=== PATIENT | female | born 1965 | race Caucasian/White ===

== ENCOUNTER 2021-03-20 07:54 | Emergency (ER) | payer BC ==
[~2021-03-20] VITALS: Ht 170 cm; Wt 85.0 kg
[2021-03-20] MEDS ORDERED: LACTATED RINGERS 1,000 ML IV STA (08:39)
--- NOTE | 2021-03-20 08:46 | ED Abdominal Pain ---
General Chief Complaint: Abdominal/GI Problems Stated Complaint: ABD PAIN Nursing Triage Note: AMB TO ROOM WITH C/O NAUSEA AND WEAK FOR 6 MONTHS WITH WT LOSS. IF SHE EATS HAS PAIN IN R UPPER QUAD. Source of Information: Patient Exam Limitations: No Limitations History of Present Illness Date Seen by Provider: Mar 20, 2021 Time Seen by Provider: 08:28 Initial Comments Here with report of nausea with occasional vomiting and loose stools over the last 6 months. Notes 60 pound weight loss in the last 6 months. Does report some mild right upper quadrant abdominal pain. Denies significant past medical history. She did used to drink and used to smoke but does neither now and has not for the last 6 to 7 years. Denies blood in her vomit or stool but does note that her stools are a little bit darker. She has taken Pepto-Bismol for the discomfort. Denies dysuria. She has intermittently followed with a doctor over the last several years. Timing/Duration: Getting Worse, Other (6 months) Severity/Quality: Mild, Aching Location: RUQ Radiation: No Radiation Activities at Onset: None Modifying Factors: Worsens With Eating Associated Symptoms: No Back Pain, No Chest Pain, No Fever/Chills; Fatigue; No Headache; Nausea/Vomiting; No Shortness of Air Allergies and Home Medications Allergies Coded Allergies: No Known Drug Allergies (Unverified , 03/20/21) Patient Home Medication List Home Medication List Reviewed: Yes Review of Systems Review of Systems Constitutional: No chills, No fever EENTM: No Symptoms Reported Respiratory: Denies Cough, Denies Shortness of Air Cardiovascular: Denies Chest Pain, Denies Edema Gastrointestinal: Nausea; Denies Vomiting Genitourinary: No Symptoms Reported Musculoskeletal: no symptoms reported Skin: No change in color, No lesions Psychiatric/Neurological: See HPI; Denies Headache, Denies Weakness All Other Systems Reviewed Negative Unless Noted: Yes Past Eocjbrl-Kehmot-Uugucy Hx Patient Social History Tobacco Use?: No Smoking Status: Former Smoker Substance use?: No Alcohol Use?: Yes Alcohol Frequency: Rarely Immunizations Up To Date First/Initial COVID19 Vaccinat: Sep COVID19 Vaccination Gómez: OCT COVID19 Vaccine [employer]: Eloxx Past Medical History Surgeries: Yes Section Respiratory: No Cardiac: No Neurological: No Genitourinary: No Gastrointestinal: No Family Medical History Reviewed and Corrections made No Pertinent Family Hx Physical Exam Vital Signs Vital Signs - First Documented 03/20/21 08:06 Temp 36.9 Pulse 109 Resp 18 B/P (MAP) 131/75 (93) Capillary Refill : Height/Weight/BMI Height: '" Weight: lbs. oz. kg; 29.00 BMI Method: General Appearance: WD/WN, no apparent distress HEENT: PERRL/EOMI, pharynx normal Neck: full range of motion, supple Respiratory: lungs clear, normal breath sounds Cardiovascular: no murmur, tachycardia Peripheral Pulses: 2+ Dorsalis Pedis (R), 2+ Left Dors-Pedis (L), 2+ Radial Pulses (R), 2+ Radial Pulses (L) Gastrointestinal: non tender, soft Extremities: non-tender, normal inspection Back: normal inspection, no CVA tenderness, no vertebral tenderness Neurologic/Psychiatric: alert, oriented x 3 Skin: normal color, warm/dry Progress/Results/Core Measures Results/Orders Lab Results Laboratory Tests Test 03/20/21 08:41 03/20/21 09:47 Range/Units White Blood Count 7.2 4.3-11.0 10^3/uL Red Blood Count 4.32 3.80-5.11 10^6/uL Hemoglobin 14.8 11.5-16.0 g/dL Hematocrit 42 35-52 % Mean Corpuscular Volume 98 80-99 fL Mean Corpuscular Hemoglobin 34 25-34 pg Mean Corpuscular Hemoglobin Concent 35 32-36 g/dL Red Cell Distribution Width 13.4 10.0-14.5 % Platelet Count 169 130-400 10^3/uL Mean Platelet Volume 9.7 9.0-12.2 fL Immature Granulocyte % (Auto) 1 % Neutrophils (%) (Auto) 87 H 42-75 % Lymphocytes (%) (Auto) 6 L 12-44 % Monocytes (%) (Auto) 6 0-12 % Eosinophils (%) (Auto) 0 0-10 % Basophils (%) (Auto) 0 0-10 % Neutrophils # (Auto) 6.3 1.8-7.8 10^3/uL Lymphocytes # (Auto) 0.4 L 1.0-4.0 10^3/uL Monocytes # (Auto) 0.4 0.0-1.0 10^3/uL Eosinophils # (Auto) 0.0 0.0-0.3 10^3/uL Basophils # (Auto) 0.0 0.0-0.1 10^3/uL Immature Granulocyte # (Auto) 0.1 0.0-0.1 10^3/uL Neutrophils % (Manual) 66 % Lymphocytes % (Manual) 7 % Monocytes % (Manual) 8 % Eosinophils % (Manual) 0 % Basophils % (Manual) 0 % Band Neutrophils 19 % Blood Morphology Comment NORMAL Sodium Level 128 L 135-145 MMOL/L Potassium Level 3.2 L 3.6-5.0 MMOL/L Chloride Level 87 L 98-107 MMOL/L Carbon Dioxide Level 25 21-32 MMOL/L Anion Gap 16 H 5-14 MMOL/L Blood Urea Nitrogen 7 7-18 MG/DL Creatinine 0.68 0.60-1.30 MG/DL Estimat Glomerular Filtration Rate > 60 BUN/Creatinine Ratio 10 Glucose Level 119 H 70-105 MG/DL Calcium Level 8.2 L 8.5-10.1 MG/DL Corrected Calcium 8.8 8.5-10.1 MG/DL Magnesium Level 1.6 1.6-2.4 MG/DL Total Bilirubin 0.5 0.1-1.0 MG/DL Aspartate Amino Transf (AST/SGOT) 39 H 5-34 U/L Alanine Aminotransferase (ALT/SGPT) 23 0-55 U/L Alkaline Phosphatase 59 40-136 U/L C-Reactive Protein High Sensitivity 28.11 H 0.00-0.50 MG/DL Total Protein 6.8 6.4-8.2 GM/DL Albumin 3.2 3.2-4.5 GM/DL Urine Color ORANGE Urine Clarity CLEAR Urine pH 6.5 5-9 Urine Specific [place] 1.010 L 1.016-1.022 Urine Protein 2+ H NEGATIVE Urine Glucose (UA) NEGATIVE NEGATIVE Urine Ketones TRACE H NEGATIVE Urine Nitrite NEGATIVE NEGATIVE Urine Bilirubin 1+ H NEGATIVE Urine Urobilinogen 1.0 < = 1.0 MG/DL Urine Leukocyte Esterase TRACE H NEGATIVE Urine RBC (Auto) 2+ H NEGATIVE Urine RBC 5-10 H /HPF Urine WBC 2-5 /HPF Urine Squamous Epithelial Cells 10-25 H /HPF Urine Crystals NONE /LPF Urine Bacteria FEW H /HPF Urine Casts NONE /LPF Urine Mucus SMALL H /LPF Urine Culture Indicated NO My Orders Orders - GRANT,NAVIN D MD Cbc With Automated Diff (03/20/21 08:39) Comprehensive Metabolic Panel (03/20/21 08:39) Hs C Reactive Protein (03/20/21 08:39) Magnesium (03/20/21 08:39) Ua Culture If Indicated (03/20/21 08:39) Lactated Ringers (Lr 1000 Ml Iv Solution (03/20/21 08:39) Ed Iv/Invasive Line Start (03/20/21 08:39) Ct Abdomen/Pelvis W (03/20/21 08:39) Manual Differential (03/20/21 08:41) Iohexol Injection (Omnipaque 350 Mg/Ml 1 (03/20/21 09:30) Received Contrast (Hold Metformin- Contr (03/20/21 09:30) Sodium Chloride Flush (Catheter Flush Sy (03/20/21 09:30) Ns (Ivpb) (Sodium Chloride 0.9% Ivpb Bag (03/20/21 09:30) Urine Culture (03/20/21 11:32) Ceftriaxone 1 Gram Ivp (03/20/21 11:32) Medications Given in ED Current Medications Medications Dose Ordered Sig/Jerardo Route Start Time Stop Time Status Last Admin Dose Admin Iohexol 100 ml ONCE ONCE IV 03/20/21 09:30 03/20/21 09:37 DC 03/20/21 09:59 100 ML Sodium Chloride 10 ml NEEDED PRN IV 03/20/21 09:30 03/20/21 09:59 10 ML Sodium Chloride 100 ml ONCE ONCE IV 03/20/21 09:30 03/20/21 09:37 DC 03/20/21 09:59 80 ML Vital Signs/I&O 03/20/21 08:06 Temp 36.9 Pulse 109 Resp 18 B/P (MAP) 131/75 (93) Blood Pressure Mean: 93 Progress Progress Note : Progress Note Seen and evaluated. IV, labs, UA, LR 1 L bolus ordered. Anticipate CT abdomen pelvis with contrast. Monitor patient. 1130: Rocephin 1 g IV for possible pyelonephritis. This shows up on the right on CT scan. Patient is able to tolerate p.o. and feels like she could do this at home. We will culture the urine. Rocephin 1 g IV now and we will continue outpatient treatment with cefdinir. Discharged home with return precautions. Patient verbalized understanding instructions and agreement with plan. Diagnostic Imaging Diagonstic Imaging: CT Plain Films/CT/US/NM/MRI: abdomen, pelvis Comments [facility] [place], [place] NAME: LUCILLE REN [facility] REC#: [id number] PT STATUS: REG ER : 1965 PHYSICIAN: NAVIN BURNS MD ADMIT DATE: 03/20/21/ER Draft Date of Exam:03/20/21 CT ABDOMEN/PELVIS W PROCEDURE: CT abdomen and pelvis with contrast. TECHNIQUE: Multiple contiguous axial images were obtained through the abdomen and pelvis after administration of intravenous contrast. Auto Exposure Controls were utilized during the CT exam to meet ALARA standards for radiation dose reduction. All CT scans use one or more of the following dose optimizing techniques: automated exposure control, MA and/or KvP adjustment based on patient size and exam type or iterative reconstruction. INDICATION: Unintentional weight loss and decreased appetite. COMPARISON: No prior studies are available for comparison. The lung bases are clear. The liver shows diffuse low density consistent with hepatic steatosis. No discrete liver mass is detected. The gallbladder is unremarkable. There is no biliary ductal dilatation. The pancreas and spleen are unremarkable. No adrenal mass is identified. There appears to be a small cortical cyst in the upper pole of the right kidney. There appears to be some minimal inflammatory stranding and trace fluid adjacent to the upper pole of the right kidney, nonspecific. Aorta is calcified but nonaneurysmal. Bowel loops are normal caliber. There is diverticulosis of the sigmoid but no evidence of acute diverticulitis. No ascites is identified. Appendix is unremarkable. No definite central, retroperitoneal or mesenteric lymphadenopathy is seen. No pelvic lymphadenopathy is detected. Bony structures are nonacute. IMPRESSION: 1. Hepatic steatosis. 2. Small right renal cyst with minimal fluid and inflammation adjacent to the right kidney, nonspecific. The remainder of the study is unremarkable apart from uncomplicated diverticulosis. No abdominal or pelvic lymphadenopathy or discrete mass is detected. Dictated on workstation # [id number] Dict: 03/20/21 1016 Trans: 03/20/21 1029 [facility] [id number] Interpreted by: VIKY HINDS MD Electronically signed by: Departure Impression Primary Impression: Pyelonephritis of right kidney Additional Impression: Dehydration Disposition: 01 HOME, SELF-CARE Condition: Stable Departure-Patient Inst. Decision time for Depature: 11:35 Referrals: NO,LOCAL PHYSICIAN (PCP/Family) Primary Care Physician Patient Instructions: Kidney Infection (DC), Dehydration, Adult (DC) Add. Discharge Instructions: All discharge instructions reviewed with patient and/or family. Voiced understanding. It is very important that you maintain a normal diet and drink plenty of fluids. Take medications as directed. It is also very important that you follow-up with your doctor of your choice within the next week for recheck and further evaluation. You need to establish care and then they can follow the kidney cyst on the right and also ensure that you are getting better after antibiotics. Please return if you are having any worsening of symptoms including fever, vomiting, weakness, breathing problems or other concerns as needed. Scripts Cefdinir (Cefdinir) 300 Mg Capsule 300 MG PO BID, #14 CAP 0 Refills Prov: NAVIN BURNS MD 03/20/21 NAVIN BURNS MD Mar 20, 2021 08:46
[2021-03-20 08:56] LABS: BASOPHILS % (AUTO) 0 % (0-10); EOSINOPHILS % (AUTO) 0 % (0-10); HEMATOCRIT 42 % (35-52); HEMOGLOBIN 14.8 g/dL (11.5-16.0); LYMPHOCYTES # (AUTO) 0.4 10^3/uL (1.0-4.0); LYMPHOCYTES % (AUTO) 6 % (12-44); MEAN CORPUSCULAR HEMOGLOBIN 34 pg (25-34); MEAN CORPUSCULAR HGB CONC 35 g/dL (32-36); MEAN CORPUSCULAR VOLUME 98 fL (80-99); MEAN PLATELET VOLUME 9.7 fL (9.0-12.2); MONOCYTES # (AUTO) 0.4 10^3/uL (0.0-1.0); MONOCYTES % (AUTO) 6 % (0-12); NEUTROPHILS # (AUTO) 6.3 10^3/uL (1.8-7.8); NEUTROPHILS % (AUTO) 87 % (42-75); PLATELET COUNT 169 10^3/uL (130-400); WHITE BLOOD COUNT 7.2 10^3/uL (4.3-11.0)
[2021-03-20 09:15] LABS: ALBUMIN 3.2 GM/DL (3.2-4.5)
[2021-03-20 09:16] LABS: CHLORIDE 87 MMOL/L (98-107); POTASSIUM 3.2 MMOL/L (3.6-5.0); SODIUM 128 MMOL/L (135-145)
[2021-03-20 09:17] LABS: CALCIUM 8.2 MG/DL (8.5-10.1)
[2021-03-20 09:18] LABS: GLUCOSE 119 MG/DL (70-105); TOTAL PROTEIN 6.8 GM/DL (6.4-8.2)
[2021-03-20 09:19] LABS: CARBON DIOXIDE 25 MMOL/L (21-32)
[2021-03-20 09:20] LABS: BILIRUBIN,TOTAL 0.5 MG/DL (0.1-1.0)
[2021-03-20 09:21] LABS: ALKALINE PHOSPHATASE 59 U/L (40-136)
[2021-03-20 09:22] LABS: CREATININE SERUM 0.68 MG/DL (0.60-1.30); GFR ESTIMATED > 60
[2021-03-20 09:23] LABS: BAND NEUTROPHILS 19 %; BASOPHILS % (MANUAL) 0 %; BUN/CREATININE RATIO 10; EOSINOPHILS % (MANUAL) 0 %; LYMPHOCYTES % (MANUAL) 7 %; MONOCYTES % (MANUAL) 8 %; NEUTROPHILS % (MANUAL) 66 %; RBC MORPH NORMAL
[2021-03-20 09:25] LABS: ALANINE AMINOTRANSFERASE 23 U/L (0-55); MAGNESIUM 1.6 MG/DL (1.6-2.4)
[2021-03-20] MEDS ORDERED: IOHEXOL 350 MG/ML 100 ML (OMNIPAQUE 350) VIAL IV ONE (09:30)
[2021-03-20] MEDS ORDERED: NS 100 ML (IVPB) BAG IV ONE (09:30)
[2021-03-20] MEDS ORDERED: CATHETER FLUSH 10 ML SYR IV PRN (09:30)
[2021-03-20] MEDS ORDERED: HOLD METFORMIN - RECEIVED CONTRAST 20 ML VIAL IV SCH (09:30)
[2021-03-20 09:54] LABS: CLARITY,URINE CLEAR; COLOR,URINE ORANGE; GLUCOSE, URINE (UA) NEGATIVE (NEGATIVE); KETONES,URINE TRACE (NEGATIVE); LEUKOCYTE ESTERASE ,URINE TRACE (NEGATIVE); NITRITE,URINE NEGATIVE (NEGATIVE); PH,URINE 6.5 (5-9); PROTEIN,URINE 2+ (NEGATIVE)
[2021-03-20 10:15] LABS: BACTERIA,URINE FEW /HPF; BILIRUBIN,URINE 1+ (NEGATIVE)
--- NOTE | 2021-03-20 10:29 | Diagnostic Imaging Report ---
PROCEDURE: CT abdomen and pelvis with contrast. TECHNIQUE: Multiple contiguous axial images were obtained through the abdomen and pelvis after administration of intravenous contrast. Auto Exposure Controls were utilized during the CT exam to meet ALARA standards for radiation dose reduction. All CT scans use one or more of the following dose optimizing techniques: automated exposure control, MA and/or KvP adjustment based on patient size and exam type or iterative reconstruction. INDICATION: Unintentional weight loss and decreased appetite. COMPARISON: No prior studies are available for comparison. The lung bases are clear. The liver shows diffuse low density consistent with hepatic steatosis. No discrete liver mass is detected. The gallbladder is unremarkable. There is no biliary ductal dilatation. The pancreas and spleen are unremarkable. No adrenal mass is identified. There appears to be a small cortical cyst in the upper pole of the right kidney. There appears to be some minimal inflammatory stranding and trace fluid adjacent to the upper pole of the right kidney, nonspecific. Aorta is calcified but nonaneurysmal. Bowel loops are normal caliber. There is diverticulosis of the sigmoid but no evidence of acute diverticulitis. No ascites is identified. Appendix is unremarkable. No definite central, retroperitoneal or mesenteric lymphadenopathy is seen. No pelvic lymphadenopathy is detected. Bony structures are nonacute. IMPRESSION: 1. Hepatic steatosis. 2. Small right renal cyst with minimal fluid and inflammation adjacent to the right kidney, nonspecific. The remainder of the study is unremarkable apart from uncomplicated diverticulosis. No abdominal or pelvic lymphadenopathy or discrete mass is detected. Dictated by: Dictated on workstation # [id number]
[2021-03-20] MEDS ORDERED: cefTRIAXone 1,000 MG in WATER (STERILE) FOR INJECTION 10 ML IV STA (11:32)
[2021-03-20] MEDS ORDERED: CEFD300C3 PO (11:38)
[2021-03-20 12:25] VITALS: BP 114/63
== END 2021-03-20 12:25 | disposition home or self-care (01) ==
LOC: ER 07:57
DX: N12 Tubulo-interstitial nephritis, not specified as acute or chronic (principal); E86.0 Dehydration; Z87.891 Personal history of nicotine dependence
CPT/HCPCS: 36415; 74177; 80053; 81000; 83735; 85007; 85027; 86141; 87088

== ENCOUNTER → 2021-08-14 | Outpatient (CLI) | payer BC ==
[~2021-08-14] MED LIST: CEFD300C3 PO
--- NOTE | 2021-08-14 11:01 | Diagnostic Imaging Report ---
PROCEDURE: CT urinary tract, rule out kidney stone. TECHNIQUE: Multiple contiguous axial images were obtained through the abdomen and pelvis without the use of intravenous contrast. Auto Exposure Controls were utilized during the CT exam to meet ALARA standards for radiation dose reduction. INDICATION: Bilateral flank pain and microhematuria. CORRELATION is made with prior CT from 03/20/2021. FINDINGS: The lung bases are clear. The liver and gallbladder are unremarkable. There is no biliary ductal dilatation. The pancreas and spleen are unremarkable. No adrenal mass is detected. There is a small cortical slightly hyperdense lesion along the anterior cortex of the right kidney lower pole which appears stable since the study from March. Lesion remains indeterminate. Simple appearing cyst along the posterior cortex of the right kidney lower pole is stable. No calculi are identified. There is no hydronephrosis. Left kidney is unremarkable. Aorta is calcified but nonaneurysmal. The small and large bowel loops are normal caliber. There is diverticulosis of the descending colon and sigmoid but no evidence of acute diverticulitis. There is a right para-midline fat-containing ventral hernia in the lower abdomen/pelvis. No herniated bowel loops are seen. There is no free fluid or fluid collection. Bladder is decompressed. The uterus is unremarkable. IMPRESSION: 1. Right renal cyst. 2. Stable indeterminate slightly hyperdense right renal cortical lesion compared with study from March. Continued close interval follow-up to confirm stability is recommended. There is no calculi or hydronephrosis. 3. Uncomplicated diverticulosis. 4. Midline fat-containing ventral hernia. No herniated bowel loops or bowel obstruction is seen. Dictated by: Dictated on workstation # [id number]
== END ==
LOC: RAD 10:15
PROVIDERS: ATTEND Physician Assistant
DX: N28.1 Cyst of kidney, acquired (principal); K57.30 Diverticulosis of large intestine without perforation or abscess without bleeding; K43.9 Ventral hernia without obstruction or gangrene
CPT/HCPCS: 74176

== ENCOUNTER 2022-08-02 11:19 | Emergency (ER) | payer BC ==
[~2022-08-02] VITALS: Ht 162 cm; Wt 77.1 kg
--- NOTE | 2022-08-02 12:22 | ED General ---
General Chief Complaint: General Problems/Pain Stated Complaint: WEAKNESS | SORE THROAT Nursing Triage Note: pt states weakness for 2 weeks, had covid 2 weeks ago, her work called her and asked him to have her checked out. low back pain and sore throat Source of Information: Patient Exam Limitations: No Limitations (AMALIA REN) History of Present Illness Date Seen by Provider: Aug 02, 2022 Time Seen by Provider: 12:12 Initial Comments Patient is a 56 year old F who presents to the ER with CC of weakness and lethargy onset 2 weeks ago. Patient reports that 2 weeks ago she tested positive for COVID and has been resting at home. Today she states is her first day back at work and her boss wanted her to come in to get evaluated because "she is just not acting herself". She states that she has a sore throat and swelling in her neck. She denies any changes in her appetite or bowel movements. She also denies any change in urine. Patient states she has neck and back pain that is chronic. She also c/o runny nose and mild dry cough. Denies fever, chills, body aches, numbness, or weakness. She is a former smoker that quit more than 10 years ago. Denies EtOH or illicit drug use. Timing/Duration: Other (2 weeks) Associated Systoms: No Cough, No Fever/Chills, No Loss of Appetite, No Nausea/Vomiting; Weakness (AMALIA REN) Allergies and Home Medications Allergies Coded Allergies: No Known Drug Allergies (Unverified , 03/20/21) Patient Home Medication List Home Medication List Reviewed: Yes (AMALIA REN) Home Medication List Reviewed: Yes (RIOS DE LA VEGA MD) Cefdinir (Cefdinir) 300 Mg Capsule, 300 MG PO BID Prescribed by: NAVIN BURNS on 03/20/21 7575 Review of Systems Review of Systems Constitutional: No chills, No fever; weakness EENTM: throat pain, throat swelling (bilateral anterior neck) Respiratory: cough (mild, dry) Gastrointestinal: No abdominal pain, No loss of appetite Genitourinary: No dysuria, No hematuria Musculoskeletal: back pain, neck pain (AMALIA REN) Past Dpgqoim-Oqhsbl-Awalbc Hx Patient Social History Tobacco Use?: No Substance use?: No Alcohol Use?: Yes Alcohol type: Wine ([facility]) Immunizations Up To Date First/Initial COVID19 Vaccinat: SEP Second COVID19 Vaccination Gómez: OCT Third COVID19 Vaccination Date: SEP ([facility] Past Medical History Surgery/Hospitalization HX: covid 3 times, hx of uti's Surgeries: Yes Section Respiratory: No Cardiac: No Neurological: No Genitourinary: No Gastrointestinal: No ([facility]) Family Medical History No Pertinent Family Hx ([facility]) Physical Exam Vital Signs Vital Signs - First Documented 08/02/22 11:50 Temp 36.3 Pulse 107 Resp 20 B/P (MAP) 140/83 (102) Pulse Ox 98 O2 Delivery Room Air (RIOS DE LA VEGA MD) Vital Signs Capillary Refill : Less Than 3 Seconds ([facility]) Height, Weight, BMI Height: '" Weight: lbs. oz. kg; 29.00 BMI Method: General Appearance: No Apparent Distress, WD/WN Neck: Full Range of Motion, Normal Inspection, Non Tender Respiratory: Chest Non Tender, Lungs Clear, Normal Breath Sounds, No Accessory Muscle Use, No Respiratory Distress Cardiovascular: Regular Rate, Rhythm, No Murmur Gastrointestinal: Non Tender, Soft Extremity: Normal Capillary Refill, Non Tender, No Calf Tenderness, No Pedal Edema Neurologic/Psychiatric: Alert, Oriented x3 Skin: Normal Color, Warm/Dry ([facility]) Progress/Results/Core Measures Suspected Sepsis SIRS Temperature: Pulse: 107 Respiratory Rate: 20 Blood Pressure 140 /83 Mean: 102 ([facility]) Results/Orders Lab Results Laboratory Tests Test 08/02/22 11:57 08/02/22 12:48 Range/Units Serum Alcohol 365 *H <10 MG/DL Urine Color YELLOW Urine Clarity CLEAR Urine pH 6.0 5-9 Urine Specific [place] <=1.005 1.016-1.022 Urine Protein NEGATIVE NEGATIVE Urine Glucose (UA) NEGATIVE NEGATIVE Urine Ketones NEGATIVE NEGATIVE Urine Nitrite NEGATIVE NEGATIVE Urine Bilirubin NEGATIVE NEGATIVE Urine Urobilinogen 0.2 < = 1.0 MG/DL Urine Leukocyte Esterase NEGATIVE NEGATIVE Urine RBC (Auto) 1+ H NEGATIVE Urine RBC 2-5 H /HPF Urine WBC NONE /HPF Urine Squamous Epithelial Cells 2-5 /HPF Urine Crystals NONE /LPF Urine Bacteria FEW H /HPF Urine Casts NONE /LPF Urine Mucus NEGATIVE /LPF Urine Culture Indicated NO Urine Opiates Screen NEGATIVE NEGATIVE Urine Oxycodone Screen NEGATIVE NEGATIVE Urine Methadone Screen NEGATIVE NEGATIVE Urine Propoxyphene Screen NEGATIVE NEGATIVE Urine Barbiturates Screen NEGATIVE NEGATIVE Ur Tricyclic Antidepressants Screen NEGATIVE NEGATIVE Urine Phencyclidine Screen NEGATIVE NEGATIVE Urine Amphetamines Screen NEGATIVE NEGATIVE Urine Methamphetamines Screen NEGATIVE NEGATIVE Urine Benzodiazepines Screen POSITIVE H NEGATIVE Urine Cocaine Screen NEGATIVE NEGATIVE Urine Cannabinoids Screen POSITIVE H NEGATIVE (RIOS DE LA VEGA MD) My Orders Orders - RIOS DE LA VEGA MD Ua Culture If Indicated (08/02/22 12:26) Drug Screen Stat (Urine) (08/02/22 12:26) Alcohol (08/02/22 12:26) Ns Iv 1000 Ml (Sodium Chloride 0.9%) (08/02/22 12:30) (RIOS DE LA VEGA MD) Vital Signs/I&O 08/02/22 08/02/22 11:50 14:10 Temp 36.3 36.3 Pulse 107 97 Resp 20 18 B/P (MAP) 140/83 (102) 137/81 Pulse Ox 98 98 O2 Delivery Room Air Room Air (RIOS DE LA VEGA MD) Vital Signs/I&O Capillary Refill : Less Than 3 Seconds (AMALIA REN) Blood Pressure Mean: 102 Progress Note : Time: 13:52 Progress Note Patient seen and evaluated by me, 56-year-old female presents to the emergency room with generalized fatigue, malaise and "not feeling good". I have seen and evaluated the patient personally, I have reviewed and agree with the medical student's documentation and plan of care, further edits as follows. Patient's vital signs are stable. She has no specific complaints. During my course of history and examination I did have an odor of alcohol from the patient. I asked her about alcohol use, she denied. She also denied drugs and smoking. Physical exam was generally unremarkable. No focal deficits. We did do influenza testing as well as urine drug screen and alcohol level. Her alcohol is notably greater than 300. Negative for flu. Positive for benzos and marijuana on her drug screen. I had a discussion with the patient about her alcohol use. She states "I overdid it over the weekend" she states this was be cause her daughter came to visit. I asked her if she had ever done rehab or AA in the past and she said intermittently. She does not seem amenable to any intervention at this time. I asked her if she drove to work this morning she said she had. I told her to take care of herself. We will send her home with some resources for and [facility]. Patient stable for discharge. (RIOS DE LA VEGA MD) Departure Impression Primary Impression: Alcohol intoxication Qualified Codes: F10.920 - Alcohol use, unspecified with intoxication, uncomplicated Disposition: 01 HOME, SELF-CARE Condition: Stable Departure-Patient Inst. Decision time for Depature: 13:55 (RIOS DE LA VEGA MD) Referrals: JUDE GARLAND MD (PCP/Family) Primary Care Physician Patient Instructions: Alcohol Intoxication ED Add. Discharge Instructions: You need to drink some fluids today to rehydrate. Avoid Tylenol products for today. If you have any aches or pains you can take [id number] ibuprofen 3 tablets with a little food every 6 hours. Follow-up with Dr. Garland's office in a week. On this paper you will find address and phone number for [facility]. I would strongly encourage you to reach out to them to see if there are any resources that you can use to help stop drinking. Return to the emergency department for any new, concerning or emergent complaints. [facility] [address] [place] [address] [facility] [phone] [address] [place] [address] Get Immediate Help [facility]gov or Call [phone]) Work/School Note: Work Release Form Date Seen in the Emergency Department: Aug 02, 2022 Verification and Attestation of Medical Student E/M Service A medical student performed and documented this service in my presence. I reviewed and verified all information documented by the medical student and made modifications to such information, when appropriate. I personally performed the physical exam and medical decision making. Rios De La Vega, Aug 04, 2022,17:25 (RIOS DE LA VEGA MD) Copy Copies To 1: JUDE GARLAND MD [facility] Aug 02, 2022 12:22 RIOS DE LA VEGA MD Aug 02, 2022 13:57
[2022-08-02] MEDS ORDERED: NS IV 1000 ML 1,000 ML IV SCH (12:30)
[2022-08-02 12:56] LABS: BILIRUBIN,URINE NEGATIVE (NEGATIVE); CLARITY,URINE CLEAR; COLOR,URINE YELLOW; GLUCOSE, URINE (UA) NEGATIVE (NEGATIVE); KETONES,URINE NEGATIVE (NEGATIVE); LEUKOCYTE ESTERASE ,URINE NEGATIVE (NEGATIVE); NITRITE,URINE NEGATIVE (NEGATIVE); PROTEIN,URINE NEGATIVE (NEGATIVE)
[2022-08-02 13:10] LABS: BACTERIA,URINE FEW /HPF
[2022-08-02 13:11] LABS: AMPHETAMINE SCREEN, URINE NEGATIVE (NEGATIVE); BENZODIAZEPINES SCREEN URINE POSITIVE (NEGATIVE); COCAINE SCREEN URINE NEGATIVE (NEGATIVE)
[2022-08-02 13:12] LABS: BARBITURATE SCREEN URINE NEGATIVE (NEGATIVE); CANNABINOID SCREEN, URINE POSITIVE (NEGATIVE); METHADONE STAT NEGATIVE (NEGATIVE); OPIATE SCREEN URINE NEGATIVE (NEGATIVE); OXYCODONE STAT NEGATIVE (NEGATIVE); PROPOXYPHENE STAT NEGATIVE (NEGATIVE); TRICYCLIC ANTIDEPRESSANTS SCRE NEGATIVE (NEGATIVE)
[2022-08-02 14:10] VITALS: BP 137/81
== END 2022-08-02 14:13 | disposition home or self-care (01) ==
LOC: EDUNIT# 11:19 → ER 11:22
DX: R53.81 Other malaise (principal); R53.83 Other fatigue; F10.129 Alcohol abuse with intoxication, unspecified; U07.1 COVID-19; Y90.8 Blood alcohol level of 240 mg/100 ml or more; Z87.891 Personal history of nicotine dependence
CPT/HCPCS: 80306; 81000; 99283; G0480; 36415; 80320

== ENCOUNTER 2023-08-03 22:01 | Inpatient (IN) | payer BC ==
[~2023-08-03] VITALS: Ht 162.6 cm; Wt 72.5 kg
[2023-08-03] MEDS ORDERED: LACTATED RINGERS 1,000 ML 1,000 ML IV ONE (22:30)
[2023-08-03 22:32] LABS: BASOPHILS # (AUTO) 0.1 10^3/uL (0.0-0.1); EOSINOPHILS % (AUTO) 0 % (0-10); HEMOGLOBIN 14.1 g/dL (11.5-16.0); MEAN CORPUSCULAR HEMOGLOBIN 37 pg (25-34)
[2023-08-03 22:34] LABS: BASOPHILS % (AUTO) 1 % (0-10); HEMATOCRIT 41 % (35-52); LYMPHOCYTES # (AUTO) 1.2 10^3/uL (1.0-4.0); LYMPHOCYTES % (AUTO) 15 % (12-44); MEAN CORPUSCULAR HGB CONC 35 g/dL (32-36); MEAN CORPUSCULAR VOLUME 106 fL (80-99); MEAN PLATELET VOLUME 10.9 fL (9.0-12.2); MONOCYTES # (AUTO) 0.4 10^3/uL (0.0-1.0); MONOCYTES % (AUTO) 5 % (0-12); NEUTROPHILS % (AUTO) 78 % (42-75); PLATELET COUNT 98 10^3/uL (130-400); WHITE BLOOD COUNT 7.7 10^3/uL (4.3-11.0)
--- NOTE | 2023-08-03 22:40 | ED General ---
General Chief Complaint: Neurological Problems Stated Complaint: SEIZURES, LOSS OF CONSCIOUSNESS Nursing Triage Note: PT AMB TO RM 6 WITH CC OF 2 SEIZURES THIS PM. 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 PT STATES KNOWN SEIZURE DISORDER. PT REPORTS HITTING HEAD. PT A&OX4 Source of Information: Patient History of Present Illness Date Seen by Provider: Aug 03, 2023 Time Seen by Provider: 22:10 Initial Comments PT ARRIVES VIA POV FROM HOME WITH --WALKS IN ON HER OWN PT STATES SHE HAS HAD 2 SEIZURES TODAY SHE HAD ONE EARLIER TODAY, AND HIT HER HEAD--SHE WAS AT [facility] AT THE TIME, AND EMS WAS CALLED, THEN PT REFUSED TRANSPORT--THE DETAILS OF THIS ARE NOT KNOWN. WAS AT WORK AT THE TIME SHE HAD ANOTHER SEIZURE ABOUT 1/2 HOUR PRIOR TO ARRIVAL. PT STATES SHE WAS AT HOME, AND STATES SHE HIT HER HEAD AGAIN--THINKS IT WAS ON A CABINET. DETAILS OF THIS ARE NOT KNOWN EITHER. LEFT SHORTLY AFTER ARRIVAL, AND NO DETAILS WERE ABLE TO BE OBTAINED FROM HIM. PT DENIES ANY INCONTINENCE WITH THESE EPISODES PT HAS HAD 2 SEIZURES IN THE PAST--HAD ONE ABOUT A YEAR AGO, AND HAD ONE ABOUT 6 MONTHS PRIOR TO THAT. DID NOT SEEK CARE FOR THOSE EPISODES. SHE HAS NEVER SEEN A NEUROLOGIST OR HAD ANY TESTS OR BEEN ON ANY SEIZURE MEDICATION PT HAS LONG HISTORY OF ALCOHOL ABUSE, DRANK ABOUT A FIFTH OF VODKA A DAY, STATES RECENTLY SHE HAS "TRIED TO CUT BACK" AND CLAIMS SHE IS NOT DRINKING HARD LIQUOR DAILY, MOSTLY "SELZTERS" CLAIMS SHE HAS NOT HAD ANY ALCOHOL SINCE THE WEEKEND ( IT IS NOW TUESDAY NIGHT BEFORE ) CLAIMS SHE HAD "ONLY 6 OR 8" DRINKS ON TUESDAY OR TUESDAY. SHE HAS HER CHILDREN/FAMILY MEMBERS ARE VISITING THIS WEEK. PRIOR VISIT HERE WAS EXACTLY 1 YEAR AGO, AND SHE WAS INTOXICATED AT THAT TIME WITH ETOH LEVEL 365 AT THAT TIME. UDS + FOR BENZO'S AND THC AT THAT TIME. PT DENIES DRUG USE PT STATES SHE DOES NOT TAKE ANY MEDICATIONS SHE IS CURRENTLY ON MACROBID FOR UTI, PRESCRIBED TODAY AT [facility]/DR. MCCLURE SHE HAD SORE THROAT LAST WEEK, NOT TODAY HAD SOUP FOR LUNCH TODAY AT 1300, HAS BEEN DRINKING WATER TODAY. 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 / [facility] Allergies and Home Medications Allergies Coded Allergies: No Known Drug Allergies (Unverified , 03/20/21) Patient Home Medication List Home Medication List Reviewed: Yes Cefdinir (Cefdinir) 300 Mg Capsule, 300 MG PO BID Prescribed by: NAVIN BURNS on 03/20/21 1138 Review of Systems Review of Systems Constitutional: no symptoms reported EENTM: see HPI Respiratory: no symptoms reported Cardiovascular: see HPI Gastrointestinal: no symptoms reported Genitourinary: no symptoms reported Musculoskeletal: no symptoms reported Skin: no symptoms reported Psychiatric/Neurological: See HPI Hematologic/Lymphatic: No Symptoms Reported Immunological/Allergic: no symptoms reported Past Joexjhb-Ggcjyh-Zgbxhm Hx Patient Social History Tobacco Use?: Yes Tobacco type used: Cigarettes Smoking Status: Current Everyday Smoker Substance use?: Yes Substance type: Misuse of prescript meds, Marijuana Additional substance use comme: UDS + FOR BENZO'S AND THC Substance frequency: Daily Alcohol Use?: Yes Alcohol type: Hard Liquor, Wine, Other Alcohol Frequency: Daily Immunizations Up To Date First/Initial COVID19 Vaccinat: SEP Second COVID19 Vaccination Gómez: Oct COVID19 Vaccination Date: SEP Past Medical History Surgery/Hospitalization HX: covid 3 times, hx of uti's Surgeries: Yes Section Respiratory: No Cardiac: No Neurological: Yes (REPORTED SEIZURES, NOT VERIFIED BY / NO NEUROLOGIST OR TESTS OR MEDS) 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 oz. kg; 27.00 BMI Method: General Appearance: No Apparent Distress, WD/WN HEENT: PERRL/EOMI, Normal ENT Inspection, Pharynx Normal, Scleral Icterus (L), Scleral Icterus (R), Other (DENTURES; PT HAS LARGE HEMATOMA WITH DARK PURPLE BRUISING TO RIGHT PARIETAL / POSTERIOR PARIETAL AREA, AND ALSO LEFT OCCIPTAL/POSTERIOR PARIETAL AREA. 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 SPEECH IS CLEAR AND GAIT IS STEADY. ) Skin: Warm/Dry, Ecchymosis, Jaundice; No Petechia, No Rash Focused Exam Lactate Level 08/03/23 22:40: Lactic Acid Level 1.74 Lactic Acid Level Laboratory Tests Test 08/03/23 22:40 Lactic Acid Level 1.74 MMOL/L (0.50-2.00) Progress/Results/Core Measures Suspected Sepsis SIRS Temperature: Pulse: 119 Respiratory Rate: 16 Laboratory Tests 08/03/23 22:23: White Blood Count 7.7 Blood Pressure 134 /90 Mean: 105 08/03/23 22:40: Lactic Acid Level 1.74 Laboratory Tests 08/03/23 22:23: Creatinine 0.72, INR Comment 1.0, Platelet Count 98L, Total Bilirubin 3.1H Results/Orders Lab Results Laboratory Tests Test 08/03/23 22:23 08/03/23 22:24 08/03/23 22:40 08/03/23 22:48 Range/Units White Blood Count 7.7 4.3-11.0 10^3/uL Red Blood Count 3.85 3.80-5.11 10^6/uL Hemoglobin 14.1 11.5-16.0 g/dL Hematocrit 41 35-52 % Mean Corpuscular Volume 106 H 80-99 fL Mean Corpuscular Hemoglobin 37 H 25-34 pg Mean Corpuscular Hemoglobin Concent 35 32-36 g/dL Red Cell Distribution Width 12.5 10.0-14.5 % Platelet Count 98 L 130-400 10^3/uL Mean Platelet Volume 10.9 9.0-12.2 fL Immature Granulocyte % (Auto) 1 % Neutrophils (%) (Auto) 78 H 42-75 % Lymphocytes (%) (Auto) 15 12-44 % Monocytes (%) (Auto) 5 0-12 % Eosinophils (%) (Auto) 0 0-10 % Basophils (%) (Auto) 1 0-10 % Neutrophils # (Auto) 6.0 1.8-7.8 10^3/uL Lymphocytes # (Auto) 1.2 1.0-4.0 10^3/uL Monocytes # (Auto) 0.4 0.0-1.0 10^3/uL Eosinophils # (Auto) 0.0 0.0-0.3 10^3/uL Basophils # (Auto) 0.1 0.0-0.1 10^3/uL Immature Granulocyte # (Auto) 0.1 0.0-0.1 10^3/uL Percent Immature Platelet Fraction 9.4 H 0.0-7.6 % Erythrocyte Sedimentation Rate 8 0-30 MM/HR Prothrombin Time 13.6 12.2-14.7 SEC INR Comment 1.0 0.8-1.4 Activated Partial Thromboplast Time 27 24-35 SEC D-Dimer 4.02 H 0.00-0.49 UG/ML Sodium Level 132 L 135-145 MMOL/L Potassium Level 3.3 L 3.6-5.0 MMOL/L Chloride Level 96 L 98-107 MMOL/L Carbon Dioxide Level 23 21-32 MMOL/L Anion Gap 13 5-14 MMOL/L Blood Urea Nitrogen 6 L 7-18 MG/DL Creatinine 0.72 0.60-1.30 MG/DL Estimat Glomerular Filtration Rate 97 BUN/Creatinine Ratio 8 Glucose Level 134 H 70-105 MG/DL Glucometer 149 H 70-110 MG/DL Calcium Level 8.6 8.5-10.1 MG/DL Corrected Calcium 8.9 8.5-10.1 MG/DL Magnesium Level 1.7 1.6-2.4 MG/DL Total Bilirubin 3.1 H 0.1-1.0 MG/DL Aspartate Amino Transf (AST/SGOT) 260 H 5-34 U/L Alanine Aminotransferase (ALT/SGPT) 118 H 0-55 U/L Alkaline Phosphatase 109 40-136 U/L Total Creatine Kinase 151 29-168 U/L Creatine Kinase MB 2.0 <6.6 NG/ML Myoglobin 163.1 H 10.0-92.0 NG/ML Troponin I < 0.028 <0.028 NG/ML C-Reactive Protein High Sensitivity 1.01 H 0.00-0.50 MG/DL Total Protein 7.9 6.4-8.2 GM/DL Albumin 3.6 3.2-4.5 GM/DL Amylase Level 88 25-125 U/L Lipase 42 8-78 U/L TSH Bee Testing 3.45 0.35-4.94 UIU/ML Acetaminophen Level < 10 L 10-30 UG/ML Serum Alcohol < 10 <10 MG/DL Monoscreen NEGATIVE NEGATIVE Influenza Type A (RT-PCR) Not Detected Not Detecte Influenza Type B (RT-PCR) Not Detected Not Detecte SARS-CoV-2 RNA (RT-PCR) Not Detected Not Detecte Group A Streptococcus Screen Not Detected NotDetected Lactic Acid Level 1.74 0.50-2.00 MMOL/L Urine Color ORANGE Urine Clarity CLEAR Urine pH 6.0 5-9 Urine Specific [place] 1.020 1.016-1.022 Urine Protein 2+ H NEGATIVE Urine Glucose (UA) TRACE H NEGATIVE Urine Ketones 2+ H NEGATIVE Urine Nitrite POSITIVE H NEGATIVE Urine Bilirubin 3+ H NEGATIVE Urine Urobilinogen >=8.0 < = 1.0 MG/DL Urine Leukocyte Esterase NEGATIVE NEGATIVE Urine RBC (Auto) 1+ H NEGATIVE Urine RBC NONE /HPF Urine WBC 5-10 H /HPF Urine Squamous Epithelial Cells 10-25 H /HPF Urine Crystals NONE /LPF Urine Bacteria MODERATE H /HPF Urine Casts PRESENT /LPF Urine Hyaline Casts 5-10 H /LPF Urine Waxy Casts RARE H /LPF Urine Mucus LARGE H /LPF Urine Culture Indicated YES Urine Opiates Screen NEGATIVE NEGATIVE Urine Oxycodone Screen NEGATIVE NEGATIVE Urine Methadone Screen NEGATIVE NEGATIVE Urine Barbiturates Screen NEGATIVE NEGATIVE Ur Tricyclic Antidepressants Screen NEGATIVE NEGATIVE Urine Phencyclidine Screen NEGATIVE NEGATIVE Urine Amphetamines Screen NEGATIVE NEGATIVE Urine Methamphetamines Screen NEGATIVE NEGATIVE Urine Benzodiazepines Screen POSITIVE H NEGATIVE Urine Cocaine Screen NEGATIVE NEGATIVE Urine Cannabinoids Screen POSITIVE H NEGATIVE My Orders Orders - DUARTE PAVON DO Accucheck Stat ONCE (08/03/23 22:20) Ed Iv/Invasive Line Start (08/03/23 22:20) Ekg Tracing (08/03/23:20) Monitor-Rhythm Ecg Trace Only (08/03/23:20) Ct Head Wo-R/O Stroke (08/03/23:20) Acetaminophen (08/03/23:20) Alcohol (08/03/23 22:20) Amylase (08/03/23:20) Cbc And Automated Diff (08/03/23:) Comprehensive Metabolic Panel (08/03/23:) Creatine Kinase (08/03/23:) Creatine Kinase Mb (08/03/23:20) Hs C Reactive Protein (08/03/23:20) Fibrin Degradation Products (08/03/23:) Drug Screen Stat (Urine) (08/03/23:) Lactic Acid Analyzer (08/03/23:) Lipase (08/03/23:20) Magnesium (08/03/23:20) Protime With Inr (08/03/23:20) Partial Thromboplastin Time (08/03/23:20) Thyroid Analyzer (08/03/23 22:20) Ua Culture If Indicated (08/03/23:20) Erythrocyte Sedimentation Rate (08/03/23:20) Myoglobin Serum (08/03/23:20) Troponin I Arsen (08/03/23 22:20) Ed Iv/Invasive Line Start (08/03/23 22:20) Lactated Ringers 1,000 Ml (Lactated Ring (08/03/23 22:30) Chest 1 View, Ap/Pa Only (08/03/23:20) Covid 19 Inhouse Test (08/03/23 22:20) Influenza A And B By Pcr (08/03/23 22:20) Monotest (08/03/23 22:20) Rapid Strep A Screen (08/03/23:20) Urine Culture (08/03/23 22:48) Ceftriaxone Iv/Im (Ceftriaxone Iv/Im) (08/03/23 23:30) Hepatitis Panel Acute (08/03/23 23:38) Ed Iv/Invasive Line Start (08/04/23 00:19) Lactated Ringers 1,000 Ml (Lactated Ring (08/04/23 00:30) Ct Veronica Chest/Noang Abd-Pelv W (08/04/23 00:01) Iohexol Injection (Omnipaque 350 Mg/Ml 1 (08/04/23 01:15) Received Contrast (Hold Metformin- Contr (08/04/23 01:15) Sodium Chloride Flush (Catheter Flush Sy (08/04/23 01:15) Ns (Ivpb) 100 Ml (Sodium Chloride 0.9% 1 (08/04/23 01:15) Medications Given in ED Current Medications Medications Dose Ordered Sig/Jerardo Route Start Time Stop Time Status Last Admin Dose Admin Ceftriaxone Sodium 1000 mg/ Sodium Chloride 50 ml @ 100 mls/hr ONCE ONCE IV 08/03/23 23:30 08/03/23 23:59 DC 08/03/23 23:51 100 MLS/HR Iohexol 100 ml ONCE ONCE IV 08/04/23 01:15 08/04/23 01:16 DC 08/04/23 01:10 80 ML Lactated Ringer's 1,000 ml @ 0 mls/hr Q0M ONCE IV 08/03/23 22:30 08/03/23 22:31 DC 08/03/23 22:38 1,000 MLS/HR Sodium Chloride 10 ml NEEDED PRN IV 08/04/23 01:15 08/04/23 01:10 10 ML Sodium Chloride 100 ml ONCE ONCE IV 08/04/23 01:15 08/04/23 01:16 DC 08/04/23 01:10 80 ML Vital Signs/I&O Capillary Refill : Less Than 3 Seconds Blood Pressure Mean: 105 Point of Care Testing Finger Stick Blood Glucose: 149 Blood Glucose Action Taken: DR. PAVON NOTIFIED Progress Note : Progress Note VITALS STABLE, AFEBRILE GIVEN: -IV FLUIDS -ROCEPHIN LABS: -CBC WITH PLT 98,000, OTHERWISE NORMAL -CMP WITH NA 132, K 3.3, GLU 134, BUN 6, CR 0.72, BILI 3.1, AST 260, ALT 118, ALK PHOS 109 -MG 1.7 -AMYLASE/LIPASE NORMAL -CK 151, MYOGLOBIN 163 -TROPONIN NEGATIVE -TSH NORMAL -LACTIC ACID 1.74 -SED RATE 8, CRP 1.01 -PT 13.6, PTT 27, INR 1.0 -D-DIMER 4.02 -UA WITH 2+ PROTEIN, 2+ KETONES, + NITRITES, 3+ BILI, > 8 UROBILI, 5-10 WBC, MODERATE BACTERIA--URINE CULTURE PENDING -ACETAMINOPHEN LEVEL NEGATIVE -ETOH NEGATIVE -UDS + FOR BENZO'S, + FOR THC -STREP NEGATIVE -MONO NEGATIVE -COVID/FLU NEGATIVE HEPATITIS PANEL PENDING. EKG -NO STEMI OR ARRHYTHMIA CXR UNREMARKABLE, PENDING RADIOLOGIST REVIEW CT HEAD--SCALP HEMATOMAS, NO ACUTE INTRACRANIAL FINDINGS. NO SKULL FX. CT CHEST/ABDOMEN/PELVIS-UNREMARKABLE UNEVENTFUL ER STAY VITALS STABLE PT HAD NO COMPLAINTS FOR ENTIRE ER STAY DISCUSSED TEST RESULTS, NEED FOR ADMIT AND PT IS AGREEABLE TO PLAN REVIEWED PRIOR RECORDS--2 ER VISITS ECG Initial ECG Impression Date: Aug 03, 2023 Initial ECG Impression Time: 22:27 Initial ECG Rate: 110 Initial ECG Rhythm: S.Tach Initial ECG Intervals [place] 156 QRS 72 QT/QTC 318/383 Initial ECG Impression: Nonspecific Changes (INFERIOR AND ANTERIOR Q WAVES) Initial ECG Comparisson: No Previous ECG Available Comment INTERPRETED BY ME Diagnostic Imaging Comments CXR--UNREMARKABLE, PENDING RADIOLOGIST REVIEW CT HEAD--PER [facility] RADIOLOGIST VIA PHONE AT [phone] AND VIA FAX AT 0021 -LARGE SUBCUTANEOUS HEMATOMA OVERLYING RIGHT FRONTAL BONE AND BILATERAL PARIETAL OCCIPITAL BONE -NO UNDERLYING CALVARIAL FRACTURE -NO ACUTE INTRACRANIAL HEMORRHAGE OR MASS OR ACUTE INTRACRANIAL FINDINGS CT CHEST ANGIOGRAM / ABDOMEN-PELVIS--PER [facility] VIA FAX AT 0121 -NO ACUTE FINDINGS Reviewed: Reviewed by Me Departure Communication (Admissions) 0124--SPOKE WITH DR. ROPER, HOSPITALIST. ACCEPTS PT FOR ADMIT 0128--REPORT TO E-ICU PHYSICIAN. Impression Primary Impression: REPORTED SEIZURE ACTIVITY Additional Impressions: Alcoholism SUSPECTED ALCOHOL WITHDRAWL SEIZURE ELEVATED LIVER ENZYMES WITH JAUNDICE CLOSED HEAD INJURIES TRAUMATIC SCALP HEMATOMAS UTI (urinary tract infection) Marijuana use Benzodiazepine abuse Disposition: ADMITTED INPATIENT Condition: Stable Admissions Decision to Admit Reason: Admit from ER (General) Decision to Admit/Date: Aug 04, 2023 Time/Decision to Admit Time: 01:25 Departure-Patient Inst. Referrals: VERN MCCLURE DO (PCP/Family) Primary Care Physician DUARTE PAVON DO Aug 03, 2023 22:40
[2023-08-03 22:44] LABS: PROTHROMBIN TIME PATIENT 13.6 SEC (12.2-14.7)
[2023-08-03 22:45] LABS: ALBUMIN 3.6 GM/DL (3.2-4.5); CHLORIDE 96 MMOL/L (98-107); POTASSIUM 3.3 MMOL/L (3.6-5.0); SODIUM 132 MMOL/L (135-145)
[2023-08-03 22:47] LABS: AMYLASE 88 U/L (25-125); CALCIUM 8.6 MG/DL (8.5-10.1)
[2023-08-03 22:48] LABS: GLUCOSE 134 MG/DL (70-105); TOTAL PROTEIN 7.9 GM/DL (6.4-8.2)
[2023-08-03 22:49] LABS: CARBON DIOXIDE 23 MMOL/L (21-32)
[2023-08-03 22:50] LABS: BILIRUBIN,TOTAL 3.1 MG/DL (0.1-1.0)
[2023-08-03 22:51] LABS: ALKALINE PHOSPHATASE 109 U/L (40-136)
[2023-08-03 22:52] LABS: CREATININE SERUM 0.72 MG/DL (0.60-1.30); GFR ESTIMATED 97
[2023-08-03 22:53] LABS: ACETAMINOPHEN < 10 UG/ML (10-30); BUN/CREATININE RATIO 8
[2023-08-03 22:54] LABS: FIBRIN DEGRADATION PRODUCTS 4.02 UG/ML (0.00-0.49)
[2023-08-03 22:55] LABS: ALANINE AMINOTRANSFERASE 118 U/L (0-55); MAGNESIUM 1.7 MG/DL (1.6-2.4)
[2023-08-03 22:56] LABS: CREATINE KINASE 151 U/L (29-168); ERYTHROCYTE SEDIMENTATION RATE 8 MM/HR (0-30); LIPASE 42 U/L (8-78)
[2023-08-03 23:04] LABS: CLARITY,URINE CLEAR; COLOR,URINE ORANGE; GLUCOSE, URINE (UA) TRACE (NEGATIVE); KETONES,URINE 2+ (NEGATIVE); NITRITE,URINE POSITIVE (NEGATIVE); PROTEIN,URINE 2+ (NEGATIVE)
[2023-08-03 23:05] LABS: BACTERIA,URINE MODERATE /HPF; BILIRUBIN,URINE 3+ (NEGATIVE); LEUKOCYTE ESTERASE ,URINE NEGATIVE (NEGATIVE); WAXY CASTS,URINE RARE /LPF
[2023-08-03 23:06] LABS: AMPHETAMINE SCREEN, URINE NEGATIVE (NEGATIVE); BARBITURATE SCREEN URINE NEGATIVE (NEGATIVE); CANNABINOID SCREEN, URINE POSITIVE (NEGATIVE); COCAINE SCREEN URINE NEGATIVE (NEGATIVE); METHADONE STAT NEGATIVE (NEGATIVE); OPIATE SCREEN URINE NEGATIVE (NEGATIVE); OXYCODONE STAT NEGATIVE (NEGATIVE); TRICYCLIC ANTIDEPRESSANTS SCRE NEGATIVE (NEGATIVE)
[2023-08-03 23:16] LABS: TSH (THYROID ANALYZER) 3.45 UIU/ML (0.35-4.94)
[2023-08-03] MEDS ORDERED: cefTRIAXone IV/IM 1,000 MG in NS (IVPB) 50 ML 50 ML IV ONE (23:30)
[2023-08-04] MEDS ORDERED: LACTATED RINGERS 1,000 ML 1,000 ML IV ONE (00:30)
[2023-08-04] MEDS ORDERED: HOLD METFORMIN - RECEIVED CONTRAST 20 ML VIAL IV SCH (01:15)
[2023-08-04] MEDS ORDERED: IOHEXOL 350 MG/ML 100 ML (OMNIPAQUE 350) VIAL IV ONE (01:15)
[2023-08-04] MEDS ORDERED: NS 100 ML (IVPB) BAG IV ONE (01:15)
[2023-08-04] MEDS ORDERED: CATHETER FLUSH 10 ML SYR IV PRN (01:15)
[2023-08-04 02:02] VITALS: BP 121/59
[2023-08-04] MEDS ORDERED: 1/2 NS IV SOLUTION 1000 ML 1,000 ML IV PRN (03:00)
[2023-08-04] MEDS ORDERED: ANTACID SUSPENSION 30 ML UDC PO PRN (03:00)
[2023-08-04] MEDS ORDERED: ONDANSETRON INJECTION 4 MG/2 ML (SDV) IV PRN (03:00)
[2023-08-04] MEDS ORDERED: D5 1/2 NS 1,000 ML IV 1,000 ML IV PRN (03:00)
[2023-08-04] MEDS ORDERED: ONDANSETRON 4 MG ORAL DISSOLVE TABLET SL PRN (03:00)
[2023-08-04] MEDS ORDERED: SENNA W/DOCUSATE TABLET PO PRN (03:00)
[2023-08-04] MEDS ORDERED: LORazepam 1 MG TABLET PO PRN (03:00)
[2023-08-04] MEDS: D5 1/2NS + KCL 20 MEQ/L 1000ML 1,000 ML IV SCH ×4 (03:19→23:14)
--- NOTE | 2023-08-04 03:20 | Tele-ICU Progress Note ---
Progress Note I called and spoke with bedside nurse. 57 yo female admitted with seizures, has h/o alcohol abuse (daily vodka), last drink reportedly Tuesday Pt resting, NAD on video CT Head reportedly negative A/P On CIWA protocol SCDs prophy Focused Exam Sepsis Stage: Ruled Out Lactate Level 08/03/23 22:40: Lactic Acid Level 1.74 Height, Weight, BMI Height: '" Weight: lbs. oz. kg; 27.00 BMI Method: Respiratory: No Accessory Muscle Use, No Respiratory Distress Within 3hrs of presentation: Lactate level Data Review Labs Laboratory Tests 08/03/23 22:23: White Blood Count 7.7, Red Blood Count 3.85, Hemoglobin 14.1, Hematocrit 41, Mean Corpuscular Volume 106H, Mean Corpuscular Hemoglobin 37H, Mean Corpuscular Hemoglobin Concent 35, Red Cell Distribution Width 12.5, Platelet Count 98L, Mean Platelet Volume 10.9, Immature Granulocyte % (Auto) 1, Neutrophils (%) (Auto) 78H, Lymphocytes (%) (Auto) 15, Monocytes (%) (Auto) 5, Eosinophils (%) (Auto) 0, Basophils (%) (Auto) 1, Neutrophils # (Auto) 6.0, Lymphocytes # (Auto) 1.2, Monocytes # (Auto) 0.4, Eosinophils # (Auto) 0.0, Basophils # (Auto) 0.1, Immature Granulocyte # (Auto) 0.1, Percent Immature Platelet Fraction 9.4H, Erythrocyte Sedimentation Rate 8, Prothrombin Time 13.6, INR Comment 1.0, Activated Partial Thromboplast Time 27, D-Dimer 4.02H, Sodium Level 132L, Potassium Level 3.3L, Chloride Level 96L, Carbon Dioxide Level 23, Anion Gap 13, Blood Urea Nitrogen 6L, Creatinine 0.72, Estimat Glomerular Filtration Rate 97, BUN/Creatinine Ratio 8, Glucose Level 134H, Glucometer 149H, Calcium Level 8.6, Corrected Calcium 8.9, Magnesium Level 1.7, Total Bilirubin 3.1H, Aspartate Amino Transf (AST/SGOT) 260H, Alanine Aminotransferase (ALT/SGPT) 118H, Alkaline Phosphatase 109, Total Creatine Kinase 151, Creatine Kinase MB 2.0, Myoglobin 163.1H, Troponin I < 0.028, C-Reactive Protein High Sensitivity 1.01H, Total Protein 7.9, Albumin 3.6, Amylase Level 88, Lipase 42, TSH [place] Testing 3.45, Acetaminophen Level < 10L, Serum Alcohol < 10, Monoscreen NEGATIVE 08/03/23 22:24: Influenza Type A (RT-PCR) Not Detected, Influenza Type B (RT-PCR) Not Detected, SARS-CoV-2 RNA (RT-PCR) Not Detected, Group A Streptococcus Screen Not Detected 08/03/23 22:40: Lactic Acid Level 1.74 08/03/23 22:48: Urine Color ORANGE, Urine Clarity CLEAR, Urine pH 6.0, Urine Specific [place] 1.020, Urine Protein 2+H, Urine Glucose (UA) TRACEH, Urine Ketones 2+H, Urine Nitrite POSITIVEH, Urine Bilirubin 3+H, Urine Urobilinogen >=8.0, Urine Leukocyte Esterase NEGATIVE, Urine RBC (Auto) 1+H, Urine RBC NONE, Urine WBC 5- 10H, Urine Squamous Epithelial Cells 10-25H, Urine Crystals NONE, Urine Bacteria MODERATEH, Urine Casts PRESENT, Urine Hyaline Casts 5-10H, Urine Waxy Casts RAREH, Urine Mucus LARGEH, Urine Culture Indicated YES, Urine Opiates Screen NEGATIVE, Urine Oxycodone Screen NEGATIVE, Urine Methadone Screen NEGATIVE, Urine Barbiturates Screen NEGATIVE, Ur Tricyclic Antidepressants Screen NEGATIVE, Urine Phencyclidine Screen NEGATIVE, Urine Amphetamines Screen NEGATIVE, Urine Methamphetamines Screen NEGATIVE, Urine Benzodiazepines Screen POSITIVEH, Urine Cocaine Screen NEGATIVE, Urine Cannabinoids Screen POSITIVEH ALEM BOLTON MD Aug 04, 2023 03:20
[2023-08-04 04:32] LABS: MONOCYTES # (AUTO) 0.3 10^3/uL (0.0-1.0)
[2023-08-04 04:34] LABS: BASOPHILS % (AUTO) 1 % (0-10); EOSINOPHILS % (AUTO) 1 % (0-10); HEMATOCRIT 33 % (35-52); HEMOGLOBIN 11.6 g/dL (11.5-16.0); LYMPHOCYTES # (AUTO) 1.2 10^3/uL (1.0-4.0); LYMPHOCYTES % (AUTO) 19 % (12-44); MEAN CORPUSCULAR HEMOGLOBIN 37 pg (25-34); MEAN CORPUSCULAR HGB CONC 36 g/dL (32-36); MEAN CORPUSCULAR VOLUME 103 fL (80-99); MEAN PLATELET VOLUME 11.9 fL (9.0-12.2); MONOCYTES % (AUTO) 5 % (0-12); NEUTROPHILS # (AUTO) 4.7 10^3/uL (1.8-7.8); NEUTROPHILS % (AUTO) 75 % (42-75); PLATELET COUNT 79 10^3/uL (130-400); WHITE BLOOD COUNT 6.2 10^3/uL (4.3-11.0)
[2023-08-04 04:45] LABS: ALBUMIN 3.1 GM/DL (3.2-4.5)
[2023-08-04 04:46] LABS: POTASSIUM 3.4 MMOL/L (3.6-5.0)
[2023-08-04 04:47] LABS: CALCIUM 8.2 MG/DL (8.5-10.1)
[2023-08-04 04:48] LABS: TOTAL PROTEIN 6.6 GM/DL (6.4-8.2)
[2023-08-04 04:50] LABS: BILIRUBIN,TOTAL 2.2 MG/DL (0.1-1.0)
[2023-08-04 04:52] LABS: CREATININE SERUM 0.61 MG/DL (0.60-1.30)
[2023-08-04 04:54] LABS: MAGNESIUM 1.6 MG/DL (1.6-2.4)
[2023-08-04] MEDS ORDERED: POTASSIUM CL 10MEQ/50ML IVPB 200 ML IV ONE (05:40)
[2023-08-04] MEDS ORDERED: MAGNESIUM 1 GM/100 ML IVPB 200 ML IV ONE (05:40)
[2023-08-04] MEDS: MAGNESIUM 1 GM/100 ML IVPB 100 ML IV SCH ×2 (05:58→05:59)
[2023-08-04] MEDS: POTASSIUM CL 10MEQ/50ML IVPB 50 ML IV SCH ×2 (05:59→07:38)
--- NOTE | 2023-08-04 06:16 | Diagnostic Imaging Report ---
CLINICAL INDICATIONS: Patient with 2 seizures this p.m. Patient hit head. EXAM: Axial CT scan of the brain performed without IV contrast with sagittal and coronal reformatted images. Auto Exposure Controls were utilized during the CT exam to meet ALARA standards for radiation dose reduction. COMPARISON: None. FINDINGS: There is no evidence of acute cerebral infarct, intracranial hemorrhage, or gross mass effect. The brain parenchymal volume appears appropriate for patient's age. There is mild chronic small vessel ischemic disease. There is normal pinto-white matter distinction. There is no significant midline shift or herniation. The visualized kiana of [place]cc[place] vascular structures have normal flow void appearance. There is no evidence of hydrocephalus. The basal cisterns are unremarkable. There is a large amount of extracranial soft tissue swelling involving the right side of the head, posterior aspect of the head, and hematoma involving the right posterior aspect of the head. There is no skull fracture. The orbits and globes are unremarkable. There is mild mucosal thickening involving both maxillary sinuses. Temporal bones show no significant abnormality. IMPRESSION: 1: There is no evidence of intracranial hemorrhage. 2: There is a large area of extracranial soft tissue swelling and hematoma involving the right side of the head posterior aspect of the head. There is no skull fracture. 3: There is mild chronic small vessel ischemic disease. Otherwise, there is no significant brain parenchymal abnormality. Agree with [facility] report. Dictated by: Dictated on workstation # [id number]
--- NOTE | 2023-08-04 07:33 | Diagnostic Imaging Report ---
INDICATION: Seizures, syncope, alcohol abuse, elevated liver enzymes and elevated D-dimer EXAMINATION: CTA chest, abdomen and pelvis Thin axial sections through the chest, abdomen and pelvis are obtained following intravenous contrast bolus. Multiplanar MIP images were reconstructed and reviewed. All CT scans use one or more of the following dose optimizing techniques: automated exposure control, MA and/or KvP adjustment based on patient size and exam type or iterative reconstruction. COMPARISON is made with a prior exam of 08/14/2021. FINDINGS: There are no discrete pulmonary nodules, masses or infiltrates. There is no pleural or pericardial fluid. There is no pneumothorax. There may be mild emphysematous disease. The thoracic aorta is normal in caliber and without evidence of dissection. There are no filling defects seen within the pulmonary arteries to suggest pulmonary embolism. There is no pathologically enlarged adenopathy in the chest. There are mild degenerative changes in the spine. There is some fatty infiltration seen within the liver. The gallbladder is hydropic measuring up to 5.4 cm transverse. There is no evidence of cholelithiasis. There is no biliary ductal dilatation. The spleen is normal. The pancreas and adrenal glands are unremarkable. There are several cortical cysts in the right kidney. The left kidney is normal. There is minimal atherosclerotic calcification of the abdominal aorta which is nonaneurysmal. The bowel gas pattern is nonspecific. The appendix is normal. There is no free air. There is no ascites. There are no focal inflammatory changes. There is mild diverticular disease without evidence of diverticulitis. The bladder is mildly distended. There is no pelvic mass, adenopathy or free fluid. There are some degenerative changes in the spine. IMPRESSION: Unremarkable CTA chest. Specifically, there is no evidence of pulmonary embolism, aortic aneurysm or dissection. Mild emphysematous disease. Fatty infiltration of the liver and a hydropic gallbladder. If there is any clinical concern for acute gallbladder disease, further evaluation with ultrasound should be considered. Cortical cysts in the right kidney. No other acute abnormality in the abdomen or pelvis. Dictated by: Dictated on workstation # [id number]
--- NOTE | 2023-08-04 07:51 | Diagnostic Imaging Report ---
CLINICAL INDICATIONS: Patient with seizure. EXAM: Chest x-ray PA view only. COMPARISON: None. FINDINGS: Lungs/pleura: Lungs are clear. There is no pneumothorax. There is no pleural effusion. Mediastinum: Unremarkable. Pulmonary vasculature: Unremarkable. Heart: Unremarkable. Bones/extrathoracic soft tissue: Unremarkable. IMPRESSION: There is no radiographic evidence of acute cardiopulmonary process. I agree with the Emergency Room clinician's preliminary impression. Dictated by: Dictated on workstation # [id number]
[2023-08-04] MEDS ORDERED: FLU QUADRIvalent (6 months+) 60 mcg/0.5 ml 2023-2024 (FLUARIX) IM ONE (08:00)
--- NOTE | 2023-08-04 10:27 | Tele-ICU Progress Note ---
Subjective Date Seen by a Provider: Aug 04, 2023 Time Seen by a Provider: 10:27 Subjective/Events-last exam (Tele-ICU Physician , Progress Note ) Service provided via interactive audio and video telecommunications E-CARE system to a patient admitted to ICU bed in [facility]. Patient is seen today due to persistent need of ICU care Available chart/ vitals / labs / Images reviewed Video assessment done using teleICU camera, rest of exam as per RN Discussed with RN Events overnight : Afebrile hemodynamically stable Respiratory - I/O = Drips: Pressors- no Hospital course: 08/03: 57 y/o female presented to the ED s/p seizure x 2 and hitting head. Admitted with reported seizure activity, ETOH, suspected ETOH withdrawal seizure, elevated liver ensymes with jaundice, closed head injuries /traumatic scalp hematomas, UTI, marijuana use and benzo abuse. CT head: (-). 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 Discussed with RN to reach out if any questions or concerns Case and care daily discussed on multidisciplinary rounds ( RN, PharmD, Milk Inspector , Respiratory Therapy, optical goods worker ) A total of 25 minutes of critical care time was devoted to this patient today, required to treat and/or prevent further deterioration of critical care condition ( as above ) . In addition to Dr Villegas visit ar 3 am today I am remotely monitoring this patient from another state. I am unable to do the bedside exam, and history/physical and pertinent information is taken from other notes in the computer and bedside staff. Sepsis Event Evaluation Height, Weight, BMI Height: '" Weight: lbs. oz. kg; 28.06 BMI Method: Focused Exam Lactate Level 11/22/23 22:40: Lactic Acid Level 1.74 Exam Exam Patient acknowledged, consented, and participated in this virtual visit which was conducted using real time audio/video Vital Signs Date Time Temp Pulse Resp B/P (MAP) Pulse Ox O2 Delivery O2 Flow Rate FiO2 08/04/23 09:00 97 11 124/81 (92) 96 Room Air 08/04/23 08:00 84 7 109/59 (73) 96 Room Air 08/04/23 08:00 36.7 08/04/23 07:00 104 08/04/23 07:00 89 10 103/55 (71) 96 Room Air 08/04/23 06:00 102 22 123/63 (83) 96 Room Air 08/04/23 05:00 105 22 129/87 (101) 96 Room Air 08/04/23 04:18 96 Room Air 08/04/23 04:00 89 12 90/39 (56) 97 Room Air 08/04/23 03:15 85 12 113/47 (69) 96 Room Air 08/04/23 03:00 85 17 107/51 (69) 96 Room Air 08/04/23 02:45 89 33 115/64 (81) 97 Room Air 08/04/23 02:32 93 08/04/23 02:30 97 Room Air 08/04/23 02:30 108 31 141/63 (89) 95 Room Air 08/04/23 02:15 95 31 154/92 (112) 95 Room Air 08/04/23 02:02 36.3 106 16 121/59 97 Room Air 08/03/23 22:15 36.3 119 16 134/90 (105) 98 Room Air I & O 08/04/23 07:00 Intake Total 1250 ml Output Total 400 ml Balance 850 ml Height & Weight Height: '" Weight: lbs. oz. kg; 28.06 BMI Method: General Appearance: No Apparent Distress, WD/WN HEENT: PERRL/EOMI, Normal ENT Inspection, Pharynx Normal, Scleral Icterus (L), Scleral Icterus (R), Other (DENTURES; PT HAS LARGE HEMATOMA WITH DARK PURPLE BRUISING TO RIGHT PARIETAL / POSTERIOR PARIETAL AREA, AND ALSO LEFT OCCIPTAL/POSTERIOR PARIETAL AREA. 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 SPEECH IS CLEAR AND GAIT IS STEADY. ) Skin: Warm/Dry, Ecchymosis, Jaundice; No Petechia, No Rash Results Lab Laboratory Tests 08/03/23 22:23 08/04/23 04:10 Assessment/Plan Assessment/Plan 1 IRWIN MORRIS MD Aug 04, 2023 10:27
[2023-08-04] MEDS: THIAMINE INJECTION 100 MG, FOLIC ACID INJECTION 1 MG, MAGNESIUM SULFATE 2 GM, MULTIVITA... IV SCH ×5 (10:31)
[2023-08-04] MEDS: LORazepam 1 MG TABLET PO SCH ×2 (11:39→18:44)
--- NOTE | 2023-08-04 18:21 | History & Physical-Hospitalist ---
History of Present Illness HPI/Chief Complaint Mona Goodwin is a 57 year old female with PMH alcohol abuse, alcohol withdrawal seizures, who presented after two reported seizures yesterday. She says she started drinking again recently and stopped completely a few days ago. She denies tremors. She reports headache. She reports diaphoresis. She reports nausea. She denies hallucinations. She denies chest pain. She denies shortness of breath. She denies abdominal pain. She denies fevers and chills. She does not take any medications regularly. She was just started on an unknown antibiotic for a UTI from urgent care, Macrobid per ER note. Source: patient Exam Limitations: no limitations Date Seen 08/04/23 Time Seen by a Provider: 10:25 Attending Physician Melvin Diaz DO PCP Admitting Physician: Peter Roper MD Attending Physician: Peter Roper MD Referring Physician Date of Admission Aug 04, 2023 at 02:17 Home Medications & Allergies Home Medications Reviewed patient Home Medication Reconciliation performed by pharmacy medication reconciliations laboratory mechanical technician and/or nursing. Patients Allergies have been reviewed. Allergies Allergies Coded Allergies No Known Drug Allergies (Unverified03/20/21) Past Fewdosg-Ixhbmn-Nxbetd Hx Patient Social History Tobacco Use?: No Tobacco type used: Cigarettes Smoking Status: Former Smoker Smokeless Tobacco Frequency: Never a User Use of E-Cig and/or Vaping dev: No Substance use?: No Substance type: Misuse of prescript meds, Marijuana Additional substance use comme: UDS + FOR BENZO'S AND THC Substance frequency: Daily Alcohol Use?: Yes Alcohol type: Hard Liquor Alcohol Frequency: Once in a while Additional Alcohol Comments: QUIT 07/30 Pt feels they are or have been: No Immunizations Up To Date First/Initial COVID19 Vaccinat: SEP Second COVID19 Vaccination Gómez: OCT Current Status status: No status: No Advance Directives: No Communicates: Verbally Primary Language: [place] Verdean Preferred Spoken Language: [place]dean Is interpretation needed?: No Implanted or Applied Medical D: None Past Medical History Surgeries: Section CANINE DEPUTY History: Menopausal Bladder Infection Blood Disorders: No Family Medical History No Pertinent Family Hx SOCIAL HISTORY: -SMOKES 1 PPD -ETOH--FIFTH OF VODKA/DAY, CLAIMS NOW DRINKS "SELTZERS" OR WINE OF 08/03/23 -DRUGS--PT DENIES, BUT PT HAS REPEATEDLY TESTED + FOR THC AND BENZO'S ( PT HAS NO PRESCRIPTIONS PER MED RECONCILIATION) - Review of Systems Constitutional: diaphoresis Respiratory: no symptoms reported Cardiovascular: no symptoms reported Gastrointestinal: nausea Physical Exam Physical Exam Vital Signs Vital Signs - First Documented 08/03/23 22:15 Temp 36.3 Pulse 119 Resp 16 B/P (MAP) 134/90 (105) Pulse Ox 98 O2 Delivery Room Air Capillary Refill : Less Than 3 Seconds Height, Weight, BMI Height: '" Weight: lbs. oz. kg; 28.06 BMI Method: General Appearance: No Apparent Distress HEENT: PERRL/EOMI, Pharynx Normal Neck: Normal Inspection, Supple Respiratory: Lungs Clear, No Respiratory Distress Cardiovascular: Regular Rate, Rhythm, No Murmur Gastrointestinal: Normal Bowel Sounds, Soft Extremity: Normal Inspection, No Pedal Edema Neurologic/Psychiatric: Alert, Oriented x3, Normal Mood/Affect Skin: Normal Color, Warm/Dry Results Results/Procedures Labs Laboratory Tests 08/03/23 22:23 08/04/23 04:10 Patient resulted labs reviewed. Imaging: Reviewed Imaging Report Assessment/Plan Admission Diagnosis Alcohol withdrawal with seizure Admission Status: Inpatient Order (span 2 midnights) Reason for Inpatient Admission: Alcohol withdrawal Assessment and Plan Alcohol withdrawal Alcohol abuse Seizure Fatty liver Thrombocytopenia [facility] protocol Add scheduled Ativan TeleICU following UTI Rocephin Culture pending DVT prophylaxis: Lovenox Critical Care Critically Ill Patient Diagnosis/Problems Diagnosis/Problems (1) Alcohol withdrawal Status: Acute Qualifiers: Complication of substance-induced condition: with unspecified complication Qualified Codes: F10.939 - Alcohol use, unspecified with withdrawal, unspecified (2) Alcohol abuse Status: Acute (3) Seizure Status: Acute (4) UTI (urinary tract infection) Status: Acute (5) Fatty liver Status: Acute (6) Thrombocytopenia Status: Acute PETER ROPER MD Aug 04, 2023 18:21
[2023-08-04] MEDS ORDERED: cefTRIAXone 1 GM/NS 50 ML IVPB IV SCH ×2 (21:00)
[2023-08-04] MEDS ORDERED: ENOXAPARIN 40 MG/0.4 ML SYRINGE SC SCH (22:00)
[2023-08-05] MEDS: LORazepam 1 MG TABLET PO SCH (03:25)
[2023-08-05 05:37] LABS: BASOPHILS % (AUTO) 1 % (0-10); EOSINOPHILS # (AUTO) 0.1 10^3/uL (0.0-0.3); EOSINOPHILS % (AUTO) 2 % (0-10); HEMATOCRIT 33 % (35-52); HEMOGLOBIN 11.3 g/dL (11.5-16.0); LYMPHOCYTES # (AUTO) 1.3 10^3/uL (1.0-4.0); LYMPHOCYTES % (AUTO) 27 % (12-44); MEAN CORPUSCULAR HEMOGLOBIN 36 pg (25-34); MEAN CORPUSCULAR HGB CONC 34 g/dL (32-36); MEAN CORPUSCULAR VOLUME 105 fL (80-99); MEAN PLATELET VOLUME 11.2 fL (9.0-12.2); MONOCYTES # (AUTO) 0.3 10^3/uL (0.0-1.0); MONOCYTES % (AUTO) 6 % (0-12); NEUTROPHILS # (AUTO) 3.1 10^3/uL (1.8-7.8); NEUTROPHILS % (AUTO) 63 % (42-75); PLATELET COUNT 90 10^3/uL (130-400)
[2023-08-05 05:46] LABS: ALANINE AMINOTRANSFERASE 65 U/L (0-55); ALKALINE PHOSPHATASE 79 U/L (40-136); BILIRUBIN,TOTAL 1.6 MG/DL (0.1-1.0); BUN/CREATININE RATIO 3; CARBON DIOXIDE 21 MMOL/L (21-32); CHLORIDE 103 MMOL/L (98-107); CREATININE SERUM 0.58 MG/DL (0.60-1.30); GFR ESTIMATED 105; GLUCOSE 122 MG/DL (70-105); MAGNESIUM 2.1 MG/DL (1.6-2.4); PHOSPHORUS 1.3 MG/DL (2.3-4.7); POTASSIUM 3.5 MMOL/L (3.6-5.0); SODIUM 133 MMOL/L (135-145); TOTAL PROTEIN 6.3 GM/DL (6.4-8.2)
[2023-08-05] MEDS ORDERED: NS IV 500 ML 500 ML IV PRN (06:15)
[2023-08-05] MEDS: D5 1/2NS + KCL 20 MEQ/L 1000ML 1,000 ML IV SCH (06:15)
[2023-08-05] MEDS ORDERED: POTASSIUM CHLORIDE 20 MEQ TABLET PO ONE (09:00)
[2023-08-05] MEDS ORDERED: POTASSIUM PHOSPHATE INJ 15 MM in NS (IVPB) 250 ML 250 ML IV ONE (09:00)
[2023-08-05] MEDS: THIAMINE INJECTION 100 MG, FOLIC ACID INJECTION 1 MG, MAGNESIUM SULFATE 2 GM, MULTIVITA... IV SCH ×5 (09:34)
[2023-08-05] MEDS ORDERED: LORA-404 PO (10:05)
[2023-08-05] MEDS ORDERED: LORazepam 1 MG TABLET PO SCH (10:45)
[2023-08-05 12:54] LABS: HEPATITIS C ANTIBODY C Non-Reactive (Non-Reactive)
--- NOTE | 2023-08-05 17:29 | Discharge Summary ---
Discharge Summary Hospital Course Problems/Dx: (1) Alcohol withdrawal Status: Acute Qualifiers: Qualified Codes: F10.939 - Alcohol use, unspecified with withdrawal, unspecified (2) Alcohol abuse Status: Acute (3) Seizure Status: Acute (4) UTI (urinary tract infection) Status: Acute (5) Fatty liver Status: Acute (6) Thrombocytopenia Status: Acute Hospital Course Date of Admission: Aug 04, 2023 at 02:17 Admission Diagnosis : Alcohol withdrawal, possible seizure Family Physician/Provider: Melvin Diaz DO Date of Discharge: 08/05/23 Discharge Diagnosis: Alcohol withdrawal, possible seizure Hospital Course: Mona Goodwin is a 57 year old female with H alcohol dependence who presented after a reported seizure. She had a fall and has a scalp hematoma and a black eye. A head CT was negative for acute intracranial pathology. She has a history of alcohol dependence and started drinking again recently. She reports that she quit drinking cold turkey a few days ago. She then began having seizures at home and came to the ER. She was also having headaches, nausea, and anxiety. She was given Ativan. Her symptoms resolved. She had no further seizures. She will complete an Ativan taper as an outpatient. She had been on an antibiotic as an outpatient for UTI and she will continue this after discharge. She needs to establish with a primary care physician. She was discharged home in stable condition. Labs and Pending Lab Test: Laboratory Tests 08/05/23 04:20: White Blood Count 5.0, Red Blood Count 3.12L, Hemoglobin 11.3L, Hematocrit 33L, Mean Corpuscular Volume 105H, Mean Corpuscular Hemoglobin 36H, Mean Corpuscular Hemoglobin Concent 34, Red Cell Distribution Width 12.3, Platelet Count 90L, Mean Platelet Volume 11.2, Immature Granulocyte % (Auto) 0, Neutrophils (%) (Auto) 63, Lymphocytes (%) (Auto) 27, Monocytes (%) (Auto) 6, Eosinophils (%) (Auto) 2, Basophils (%) (Auto) 1, Neutrophils # (Auto) 3.1, Lymphocytes # (Auto) 1.3, Monocytes # (Auto) 0.3, Eosinophils # (Auto) 0.1, Basophils # (Auto) 0.0, Immature Granulocyte # (Auto) 0.0, Percent Immature Platelet Fraction 7.2, Sodium Level 133L, Potassium Level 3.5L, Chloride Level 103, Carbon Dioxide Level 21, Anion Gap 9, Blood Urea Nitrogen < 2L, Creatinine 0.58L, Estimat Glomerular Filtration Rate 105, BUN/Creatinine Ratio 3, Glucose Level 122H, Calcium Level 8.0L, Corrected Calcium 8.8, Phosphorus Level 1.3L, Magnesium Level 2.1, Total Bilirubin 1.6H, Aspartate Amino Transf (AST/SGOT) 102H, Alanine Aminotransferase (ALT/SGPT) 65H, Alkaline Phosphatase 79, Total Protein 6.3L, Albumin 3.0L Microbiology 08/04/23 MRSA Screen - Final, Complete MRSA not isolated 08/03/23 Urine Culture - Final, Complete 3 or more isolates No Susceptibility Performed See Comments Home Meds Active Ativan (Lorazepam) 0.5 Mg Tablet 1 Mg PO UD 4 Days TAKE 1 MG THREE TIMES DAILY X 1 DAY, THEN 1 MG TWICE DAILY X 1 DAY, THEN 0.5 MG TWICE DAILY X 1 DAY, THEN 0.5 MG ONCE X 1 DAY Cefdinir 300 Mg Capsule 300 Mg PO BID Assessment/Pt Instructions see instructions Discharge Planning: >30 minutes discharge planning Discharge Instructions Discharge Diet: No Restrictions Activity as Tolerated: Yes Discharge Physical Examination Vital Signs Vital Signs Date Time Temp Pulse Resp B/P (MAP) Pulse Ox O2 Delivery O2 Flow Rate FiO2 08/05/23 11:00 121 19 141/62 (88) 88 Room Air 08/05/23 07:49 36.2 General Appearance: No Apparent Distress, WD/WN Respiratory: Lungs Clear, No Respiratory Distress Cardiovascular: Regular Rate, Rhythm, No Murmur Gastrointestinal: Normal Bowel Sounds, Soft Extremity: Normal Inspection, No Pedal Edema Skin: Normal Color, Warm/Dry Neurologic/Psychiatric: Alert, Normal Mood/Affect Allergies: Coded Allergies: No Known Drug Allergies (Unverified , 03/20/21) Copy Copies To 1: [facility] [place] Date of Admission Aug 04, 2023 at 02:17 Date of Discharge Aug 05, 2023 at 11:10 Discharge Date: Aug 05, 2023 Discharge Time: 11:10 Admission Diagnosis Alcohol withdrawal with seizure Discharge Diagnosis Alcohol withdrawal Alcohol abuse Seizure Fatty liver Thrombocytopenia UTI (1) Alcohol withdrawal Status: Acute Qualifiers: Qualified Codes: F10.939 - Alcohol use, unspecified with withdrawal, unspecified (2) Alcohol abuse Status: Acute (3) Seizure Status: Acute (4) UTI (urinary tract infection) Status: Acute (5) Fatty liver Status: Acute (6) Thrombocytopenia Status: Acute PETER ROPER MD Aug 05, 2023 17:28
[2023-08-06] MEDS ORDERED: MAGNESIUM 1 GM/100 ML IVPB 100 ML IV SCH (06:00)
[2023-08-06] MEDS ORDERED: POTASSIUM CL 10MEQ/50ML IVPB 50 ML IV SCH (06:00)
[2023-08-06] MEDS ORDERED: POTASSIUM CHLORIDE 20 MEQ TABLET PO SCH (06:00)
[2023-08-06] MEDS ORDERED: LORazepam 1 MG TABLET PO SCH (09:00)
[2023-08-07] MEDS ORDERED: LORazepam 0.5 MG TABLET PO SCH (09:00)
== END 2023-08-05 11:10 | disposition home or self-care (01) | DRG 897 ==
LOC: EDUNIT# 22:01 → ER 22:07 → ICU 08-04 02:17
PROVIDERS: ADMIT Internal Medicine; ATTEND Internal Medicine
DX: F10.239 Alcohol dependence with withdrawal, unspecified (principal); N39.0 Urinary tract infection, site not specified; Y90.0 Blood alcohol level of less than 20 mg/100 ml; G40.909 Epilepsy, unspecified, not intractable, without status epilepticus; K76.0 Fatty (change of) liver, not elsewhere classified; D69.6 Thrombocytopenia, unspecified; F17.210 Nicotine dependence, cigarettes, uncomplicated; F12.90 Cannabis use, unspecified, uncomplicated; F13.10 Sedative, hypnotic or anxiolytic abuse, uncomplicated; S00.03XA Contusion of scalp, initial encounter; S00.11XA Contusion of right eyelid and periocular area, initial encounter; W19.XXXA Unspecified fall, initial encounter; Z23 Encounter for immunization
CPT/HCPCS: 36415; 70450; 71045; 71275; 74177; 80053; 80074; 80306; 80320; 80329; 81000; 82150; 82550; 82553; 82947; 83605; 83690; 83735; 83874; 84100; 84443; 84484; 85025; 85379; 85610; 85652; 85730; 86141; 86308; 87081; 87088; 87430; 87636; 90686; 93005; 93041